=== PATIENT | female | born 2005 | race Caucasian/White ===

== ENCOUNTER 2024-09-19 22:10 | Emergency (ER) | payer OTHER, SELFPAY ==
[2024-09-19 22:21] VITALS: BP 111/90
[2024-09-19 22:44] LABS: % Basophils 0.4 % (0-2); % Eosinophils 0.8 % (0-6); % Immature Granulocytes 0.4 % (0-0.5); % Lymphocytes 27.4 % (20.5-51.1); % Monocytes 8.1 % (1.7-9.3); % Neutrophils 62.9 % (42.2-75.2); Absolute Eosinophils 0.1 10^3/uL (0-0.7); Absolute Lymphocytes 2.7 10^3/uL (1.2-3.4); Absolute Monocytes 0.8 10^3/uL (0.1-0.6); Absolute Neutrophils 6.2 10^3/uL (1.4-6.5); Hematocrit 37.5 % (37.0-47.0); Hemoglobin 13.6 g/dL (12.0-16.0); Mean Corp Hgb Conc. 36.3 g/dL (33.0-37.0); Mean Corpuscular Hgb 30.4 pg (27.0-31.0); Mean Corpuscular Volume 83.7 fL (81.0-99.0); Mean Platelet Volume 9.5 fL (7.4-10.4); Nucleated Red Blood Cells % 0 %; Platelet Count 392 10^3/uL (130-400); Red Blood Cell Count 4.48 10^6/uL (4.20-5.40); Red Cell Dist. Width 11.3 % (11.5-14.5); White Blood Cell Count 9.9 10^3/uL (4.8-10.8)
[2024-09-19 23:15] LABS: ALT (SGPT) 13 U/L (0-35); AST (SGOT) 24 U/L (14-36); Alkaline Phosphatase 54 U/L (38-126); Blood Urea Nitrogen 12 mg/dl (7-17); Calcium 9.6 mg/dl (8.4-10.2); Carbon Dioxide 23 mmol/L (22-30); Chloride 99 mmol/L (98-107); Glucose 97 mg/dl (70-99); Potassium 3.3 mmol/L (3.5-5.1); Sodium 137 mmol/L (135-145); Total Bilirubin 0.8 mg/dl (0.2-1.3); Total Protein 7.7 g/dl (6.3-8.2); eGFR > 60.00
[2024-09-20 01:14] VITALS: BP 113/64
[2024-09-20 02:00] VITALS: BP 115/74
[2024-09-20 03:39] VITALS: BP 111/66; BP 113/77; BP 122/78; PULSE 74; PULSE 79; PULSE 82
--- NOTE | 2024-09-20 03:39 | ED.GENMED ---
History of Present Illness
General
Chief Complaint: Chest Pain
Source: patient and family (Mother at bedside)
Exam Limitations: none
Time Seen by Provider: 09/20/24 02:56
Nursing documentation reviewed up to this point in time: agreed with except (Patient denies chest pain.)
History of Present Illness
History of Present Illness:
This is a 18-year-old female who has no significant past medical history who recently completed a course of Augmentin 2 days ago for treatment of sinus infection. She does admit to moderate loose stools throughout the week as well as nausea without
vomiting.
Sinus infection symptoms have resolved, no further fever, no cough.
Today however she has noted intermittent palpitations feeling that her heart is racing, more so when she gets up and walks around accompanied with lightheadedness. Symptoms resolved when she sits down.
She denies associated chest pain, no shortness of breath, no headache.
Last menstrual period 2 weeks ago, normal and on time, denies risk of .
Since arrival to the ED she has been drinking water, Gatorade, feeling improved.
She has gotten up to the bathroom and does admit to mild lightheadedness upon standing but no further palpitations.
Past History
Past History
ED Past Medical History: None and Psychiatric (Anxiety)
ED Past Surgical History: None
Social History
Tobacco: Non-smoker
Alcohol: None
Drug: None
Personal: Single
Living: with family
Employment: Student
Family History
Family History: Other (Noncontributory)
Phy Exam
Physical Exam
Physical Exam:
GENERAL: 18-year-old female appears her stated age, awake and alert, pleasant, appears in no acute distress. Mother is accompanying.
EYE: pupils equal and reactive. anicteric
NECK: Supple, nontender, no meningismus, no significant adenopathy.
ENT: posterior pharynx is clear, oral mucosa is moist. TM clear b/l, nares patent.
CARDIAC: Regular rate and rhythm. no murmur.
LUNGS: Clear breath sounds bilaterally, no acute respiratory distress, no wheezes/rales/rhonchi
ABDOMEN: Soft, nondistended, without focal tenderness, no r/g, no cvat. normoactive BS.
NEUROLOGICAL: Alert and oriented x3, no focal neuro deficits.
SKIN: Warm and dry, normal color, skin intact. No rash.
MUSCULOSKELETAL: No C/C/E. peripheral pulses are full and equal b/l. No palpable tenderness.
PSYCH: Normal and appropriate interaction.
Scores
Heart Score for Chest Pain Patients
STEMI patient?: Not applicable
Course
Orders/Labs/Results
Orders:
Orders
09/19/24 22:11
EKG [Electrocardiogram (*1)] Urgent
Reason for Study: Palpitations
EKG- Treatment ONCE
09/19/24 22:34
CBC/With Diff [Complete Blood Count/With Diff] Urgent
Comprehensive Metabolic Panel Urgent
09/20/24 03:39
Orthostatic VS- Treatment ONCE
Potassium Chloride [KCl] 20 meq PO NOW STA
Abnormal Lab Results
09/19/24
22:34
RDW 11.3 L %
(11.5-14.5)
Absolute Monos (auto) 0.8 H 10^3/uL
(0.1-0.6)
Potassium 3.3 L mmol/L
(3.5-5.1)
09/19/24 22:34
09/19/24 22:34
Vital Signs
Initial and Last Documented VS:
Initial Vital Signs
Temp Pulse Resp BP Pulse Ox
98.7 F 87 16 111/90 100
09/19/24 22:21 09/19/24 22:21 09/19/24 22:21 09/19/24 22:21 09/19/24 22:21
Last Documented Vital Signs
Temp Pulse Resp BP Pulse Ox
98.7 F 68 15 115/74 100
09/19/24 22:21 09/20/24 03:00 09/20/24 03:00 09/20/24 02:00 09/20/24 02:45
MDM/Problems Addressed
Differential Diagnosis Includes:
Concern for tachyarrhythmia, orthostasis, electrolyte abnormality, dehydration.
Clinically appears euvolemic.
She has had some loose stools over the past week which I suspect is related to Augmentin. Overall diarrhea has been moving and nothing on exam nor labs to suspect C. difficile colitis nor other infectious colitis.
Monitor shows normal sinus rhythm without ectopy.
EKG is unremarkable.
Labs remarkable for mild hypokalemia with potassium of 3.3. Normal CBC. Electrolytes are otherwise within normal limits.
Will repeat potassium orally.
Will check orthostatic vital signs.
If orthostatic vital signs within normal limits will discharge to home with recommendation she stay well-hydrated over the next several days, recommend potassium rich foods, continue electrolyte replacement fluids such as Gatorade etc
Brat diet recommended for diarrhea.
Prompt follow-up with PCP for recheck.
Return precautions discussed.
*Pulse Oximetry
Patient hypoxic: no
*EKG
Interpreted by ED Provider?: Yes
Interpretation: normal
Comparison EKG: no comparison EKG present
Rate: normal
Rhythm: sinus
Frost: normal axis
Interval: normal interval
QRS Pattern: normal QRS
Ischemia: no ischemia
*Humanities Department Chair Interpretation
Rate: normal
Interpretation: normal
Rhythm: sinus
*Critical Care Note
Total Time (30-74mins, 75-104mins- exclusive of procedures): Not Applicable
ED Attending Note
-
Portions of this chart may have been created with voice recognition software.� Occasional wrong word or��sound alike� substitutions may have occurred due to the inherent limitations of voice recognition software.
Discharge Plan
Departure
Patient Disposition: Home (Routine Discharge)
Date of Disposition: 09/20/24
Time of Disposition: 03:49
Patient with high blood pressure during this ER visit?: No
Condition: Good
Discharge Problem:
Heart palpitations, Acute hypokalemia, Diarrhea due to drug
Instructions: Acute Diarrhea, Heart Palpitations
Prescriptions:
No Action
amoxicillin 400 MG/5 ML suspension for reconstitution
400 mg PO TID Qty: 120 0RF
carbamazepine [Epitol] 200 mg tablet
100 mg PO TID Qty: 45 0RF
Rx Instructions:
May increase to 200mg PO tid after one week
Referrals:
Tabitha Jeong PA [Family Provider] - Call in 1-3 days for appt
Interventions
Interventions:
*Risk Screen - Suicide Last Done: 09/19/24 22:21
*General Assessment Last Done: 09/19/24 22:21
*Neglect/Abuse Screening Last Done: 09/19/24 22:21
ED- Fall Risk Assessment Last Done: 09/20/24 02:18
*ED COVID-19 Vaccine History Last Done: 09/19/24 22:21
*Nursing Disposition Last Done: 09/20/24 03:53
ED- Cardiac Assessment Last Done: 09/20/24 02:18
Discharge Date and Time
Discharge Date/Time: 09/20/24 03:56
Print Language: PARAGUAYAN
[2024-09-20] MEDS: KCL 20 MEQ PO (03:42)
== END 2024-09-20 03:56 | disposition home or self-care (01) ==
LOC: EMR 22:10
PROVIDERS: EMERGENCY PHYSICIAN Emergency Medicine; FAMILY PHYSICIAN Physician Assistant
DX: E87.6 Hypokalemia (principal); R00.2 Palpitations; R19.7 Diarrhea, unspecified
CPT/HCPCS: 99284; 80053; 85025; 93005

== ENCOUNTER 2024-12-14 10:01 | Emergency (ER) | payer OTHER, SELFPAY ==
[2024-12-14 10:05] VITALS: BP 113/80
[2024-12-14 12:00] VITALS: BP 111/69; BMI 24.9
[2024-12-14 12:25] VITALS: BP 103/84; BP 110/70; BP 111/69; PULSE 102; PULSE 84; PULSE 93
[2024-12-14 12:30] LABS: % Basophils 0.5 % (0-2); % Eosinophils 0.6 % (0-6); % Immature Granulocytes 0.4 % (0-0.5); % Lymphocytes 24.1 % (20.5-51.1); % Monocytes 7.6 % (1.7-9.3); % Neutrophils 66.8 % (42.2-75.2); Absolute Eosinophils 0.1 10^3/uL (0-0.7); Absolute Lymphocytes 1.9 10^3/uL (1.2-3.4); Absolute Monocytes 0.6 10^3/uL (0.1-0.6); Absolute Neutrophils 5.2 10^3/uL (1.4-6.5); Hematocrit 41.7 % (37.0-47.0); Hemoglobin 14.8 g/dL (12.0-16.0); Mean Corp Hgb Conc. 35.5 g/dL (33.0-37.0); Mean Corpuscular Hgb 30.7 pg (27.0-31.0); Mean Corpuscular Volume 86.5 fL (81.0-99.0); Mean Platelet Volume 9.2 fL (7.4-10.4); Nucleated Red Blood Cells % 0 %; Platelet Count 323 10^3/uL (130-400); Red Blood Cell Count 4.82 10^6/uL (4.20-5.40); Red Cell Dist. Width 11.8 % (11.5-14.5); White Blood Cell Count 7.7 10^3/uL (4.8-10.8)
[2024-12-14 12:47] LABS: ALT (SGPT) 13 U/L (0-35); AST (SGOT) 19 U/L (14-36); Albumin 5.4 g/dl (3.5-5.0); Alkaline Phosphatase 54 U/L (38-126); Blood Urea Nitrogen 11 mg/dl (7-17); Calcium 10.3 mg/dl (8.4-10.2); Carbon Dioxide 23 mmol/L (22-30); Chloride 105 mmol/L (98-107); Estimated Creatinine Clearance > 125 ml/min; Glucose 96 mg/dl (70-99); Potassium 4.4 mmol/L (3.5-5.1); Sodium 141 mmol/L (135-145); Total Bilirubin 1.2 mg/dl (0.2-1.3); Total Protein 8.4 g/dl (6.3-8.2); eGFR > 60.00
[2024-12-14] MEDS: NSS 1000 IV (12:59)
[2024-12-14 13:50] VITALS: BP 100/54; BP 106/74; BP 111/75; PULSE 65; PULSE 77; PULSE 78
--- NOTE | 2024-12-14 13:52 | ED.GENMED ---
History of Present Illness
General
Chief Complaint: Chest Pain
Time Seen by Provider: 12/14/24 11:15
History of Present Illness
History of Present Illness:
19-year-old female presents the emergency department for evaluation of positional lightheadedness and intermittent chest pain beginning yesterday. Began while at work yesterday, with standing for prolonged period of time. Feels somewhat better
when she is seated. Intermittent sharp pains in her chest. Feels though she cannot take a deep breath. No calf pain or leg swelling. Does not take any exogenous hormones. No recent prolonged travel or immobilization. No recent fevers or chills.
Past History
Past History
ED Past Medical History: None and Psychiatric (Anxiety)
ED Past Surgical History: None
Social History
Tobacco: Non-smoker
Alcohol: None
Drug: None
Personal: Single
Living: with family
Employment: Student
Family History
Family History: Other (Noncontributory)
Review of Systems
Review of Systems
Allergies reviewed?: Yes
All Other Systems: ROS reviewed and negative except as documented in HPI and ROS
Phy Exam
Physical Exam
Physical Exam:
GEN: Well appearing, NAD, WDWN
HEENT: Oral mucosa moist, no scleral icterus
Cardiac: Regular rate and rhythm, no murmurs
Lung: No respiratory distress, no tachypnea, lungs clear to auscultation bilaterally
MSK: No gross deformity or injuries
Skin: Good color, no pallor or jaundice, no rashes
Neuro: AO x3, moves all extremities freely
Psych: Calm, cooperative
Scores
Heart Score for Chest Pain Patients
STEMI patient?: Not applicable
Course
Orders/Labs/Results
Orders:
Orders
12/14/24 10:02
EKG [Electrocardiogram (*1)] Urgent
Reason for Study: Chest Pain
EKG- Treatment ONCE
12/14/24 12:07
Orthostatic VS- Treatment ONCE
12/14/24 12:23
Complete Blood Count/With Diff Urgent
Comprehensive Metabolic Panel Urgent
12/14/24 12:48
0.9% Sodium Chloride 1000 ml [Nss] 1,000 ml IV BOLUS
Abnormal Lab Results
12/14/24
12:23
Calcium 10.3 H mg/dl
(8.4-10.2)
Total Protein 8.4 H g/dl
(6.3-8.2)
Albumin 5.4 H g/dl
(3.5-5.0)
12/14/24 12:23
12/14/24 12:23
Vital Signs
Initial and Last Documented VS:
Initial Vital Signs
Temp Pulse Resp BP Pulse Ox
98.7 F 84 20 113/80 98
12/14/24 10:05 12/14/24 10:05 12/14/24 10:05 12/14/24 10:05 12/14/24 10:05
Last Documented Vital Signs
Temp Pulse Resp BP Pulse Ox
98.7 F 64 12 111/69 100
12/14/24 10:05 12/14/24 12:00 12/14/24 12:00 12/14/24 12:00 12/14/24 12:00
MDM/Problems Addressed
MDM/Problems Addressed:
EKG is unremarkable, vital signs normal. Patient did not complain of any further chest pain while in the emergency department. Her labs are reassuring, EKG was without signs of ischemia or arrhythmia on telemetry. She meets PE rule out criteria.
Was mildly orthostatic however this improved after IV fluids. Recommend primary care follow-up if symptoms persist
*Critical Care Note
Total Time (30-74mins, 75-104mins- exclusive of procedures): Not Applicable
ED Attending Note
-
Portions of this chart may have been created with voice recognition software.� Occasional wrong word or��sound alike� substitutions may have occurred due to the inherent limitations of voice recognition software.
Discharge Plan
Departure
Patient Disposition: Home (Routine Discharge)
Date of Disposition: 12/14/24
Time of Disposition: 13:52
Patient with high blood pressure during this ER visit?: No
Discharge Problem:
Orthostatic lightheadedness
Instructions: Orthostatic hypotension
Prescriptions:
No Action
amoxicillin 400 MG/5 ML suspension for reconstitution
400 mg PO TID Qty: 120 0RF
carbamazepine [Epitol] 200 mg tablet
100 mg PO TID Qty: 45 0RF
Rx Instructions:
May increase to 200mg PO tid after one week
Referrals:
Tabitha Jeong PA [Family Provider] -
Interventions
Interventions:
*Risk Screen - Suicide Last Done: 12/14/24 14:16
*General Assessment Last Done: 12/14/24 14:16
*Neglect/Abuse Screening Last Done: 12/14/24 14:16
*ED- Fall Risk Assessment Last Done: 12/14/24 12:26
*ED COVID-19 Vaccine History Last Done: 12/14/24 14:16
*Nursing Disposition Last Done: 12/14/24 14:16
ED- Cardiac Assessment Last Done: 12/14/24 12:00
Discharge Date and Time
Discharge Date/Time: 12/14/24 14:17
Print Language: SWEDISH
== END 2024-12-14 14:17 | disposition home or self-care (01) ==
LOC: EMR 10:01
PROVIDERS: Physician Assistant; EMERGENCY PHYSICIAN Student in an Organized Health Care Education/Training Program; FAMILY PHYSICIAN Physician Assistant
DX: R42 Dizziness and giddiness (principal); R07.89 Other chest pain
CPT/HCPCS: 99284; 96360; 80053; 85025; 93005

== ENCOUNTER → 2025-03-13 17:21 | Outpatient (REF) | payer OTHER, SELFPAY | LOC: RCS 17:21 | PROVIDERS: ATTENDING PHYSICIAN Physician Assistant | DX: Q25.1 Coarctation of aorta (principal); R01.1 Cardiac murmur, unspecified | CPT/HCPCS: 93306 ==

== ENCOUNTER 2025-03-28 23:28 | Emergency (ER) | payer OTHER, SELFPAY ==
[2025-03-28 23:36] VITALS: BP 116/90
--- NOTE | 2025-03-29 00:17 | ED.GENMED ---
History of Present Illness
General
Chief Complaint: Fever
Time Seen by Provider: 03/29/25 00:15
History of Present Illness
History of Present Illness:
PAST MEDICAL HISTORY AND REVIEW OF OLD RECORDS
- The patient has a history of anxiety/depression. She has had a couple of ED visits earlier this year, once for hypokalemia and another for orthostatic lightheadedness.
Note:
CHIEF COMPLAINT(S)
The patient, a 19-year-old female, presents with fever, headache, and swollen glands.
HISTORY OF PRESENT ILLNESS
The patient describes experiencing an elevated temperature and significant pain and swelling in her glands, similar to a past episode of mononucleosis. She reports a severe headache that she attempted to alleviate by taking three tablets of
[id number] Ibuprofen at 8 am; however, pain relief was only temporary, lasting around two hours. The patient denies any nausea and does not want anti-nausea medication. She experiences discomfort during movement of her neck but does not report
stiffness typically associated with meningitis. Respirations feel somewhat tight, although she denies anxiety as a contributing factor. The patient mentions urinary burning, possibly related to insufficient hydration. She does not have any ongoing
dysuria. Additionally, shes had some menstrual irregularities with heavier than normal flow and clots but does not believe this is connected to her current symptoms. There is no history of tick exposure or tick-borne illnesses. Given her symptoms
and her dislike for needles, the decision was made to proceed with blood work to evaluate for various potential causes, including checking Thyroid-Stimulating Hormone with reflex to free T4 as requested by her doctor.
PHYSICAL EXAM
General: Alert, in no acute distress.
Skin: Warm, dry.
Head: Normocephalic, atraumatic.
Neck: Supple, no pain on motion. Mild anterior cervical lymphadenopathy. No meningeal signs
Eye, Ears, Nose, Mouth, and Throat: Oral mucosa moist, no redness or swelling in the throat noted.
Respiratory: Respiratory effort is normal. Lung sounds are clear without wheezes or rhonchi.
Musculoskeletal: No meningismus.
Neurological: Alert and oriented. No focal neurological deficit observed.
Gastrointestinal: Abdomen nondistended and soft, no tenderness.
Back: No tenderness over spine.
Psychiatric: Appropriate mood and affect, cooperative.
PLAN
1. Order blood work to check for possible infection and thyroid function (TSH with reflex to free T4).
2. Administer antipyretic (Tylenol) orally to address fever.
3. Obtain a urine sample to assess for possible urinary infection.
4. Conduct a chest X-ray to evaluate further potential causes of symptoms.
5. Nurse to perform venipuncture for laboratory tests due to patient aversion to needles.
6. Monitor symptoms and evaluate for potential viral versus bacterial causes, particularly considering the spectrum of conditions from meningitis to viral illnesses.
7. Reassure the patient and continue monitoring vital signs for any changes.
DIFFERENTIAL DIAGNOSIS
The Differential Diagnosis includes, in no particular order and is not limited to:
1. Viral Upper Respiratory Infection
2. Mononucleosis
3. Viral or Bacterial Meningitis
4. Urinary Tract Infection
5. Streptococcal Pharyngitis
6. Sinusitis
7. Thyroid Disorder
8. Influenza
9. Allergic Reaction
10. Anxiety Disorder
RADIOLOGY
- Chest x-ray shows no definite sign of pneumonia
LABS
- White count is 3.8, hemoglobin 12.3, chemistries unremarkable, lactic is 1.2, mild transaminase elevation, TSH normal,
UPDATE
-SUMMARY OF ENCOUNTER
The patient, a 19-year-old female, presented with symptoms of fever, headache, swollen glands, and neck discomfort, reminiscent of a past episode of mononucleosis. Laboratory tests confirmed a positive Monospot test indicating infectious
mononucleosis. Blood work showed slightly elevated liver enzymes and a low white blood cell count, common in viral infections like mononucleosis. A chest X-ray was performed and interpreted to be normal. Treatment options were discussed, including
the administration of ketorolac (Toradol) via IV to manage the inflammation and pain. The patient was counseled about the self-limiting nature of the illness and instructed to avoid contact sports due to potential splenic involvement. A note was
provided to excuse the patient from work for a few days due to potential recurrence of fever.
DISPOSITION
Discharge.
ASSESSMENT
The patient likely has infectious mononucleosis with mildly elevated liver enzymes and a low white blood cell count, consistent with a viral syndrome.
EMERGENCY TREATMENTS ADMINISTERED
Ketorolac (Toradol) administered via IV.
IV fluids
Oral
PLAN
1. The patient is advised to rest and avoid contact sports or strenuous activities for at least one month.
2. Provide symptomatic treatment with anti-inflammatory medications as needed.
3. Monitor symptoms at home and return if they worsen or if new symptoms arise.
4. Patient advised on ways to prevent spreading the infection, such as avoiding kissing or sharing utensils.
INDEPENDENT REVIEW OF LABS AND INTERPRETATION OF TESTS
- My independent review of the Monospot test is positive.
- My independent review of the complete blood count indicates a low white blood cell count.
- My independent review of the liver function tests shows mildly elevated liver enzymes.
- My independent chest x-ray interpretation is normal.
PATIENT EDUCATION AND COUNSELING
The patient was educated about the transmission and nature of mononucleosis, including its contagious nature through saliva. She was advised to avoid activities that might impact the spleen for a month and was counseled on the importance of rest and
hydration.
FOLLOW-UP INSTRUCTIONS
The patient should follow up with her primary care physician if symptoms do not improve or worsen. She was provided a work excuse note valid until Tuesday and instructed to only return to work if feeling better.
MEDICATION RECONCILIATION
- Ketorolac given as an IV injection in the emergency department.
MEDICAL DECISION MAKING
1. Number and Complexity of Problems Addressed:
- Chronic conditions affecting care: Infectious mononucleosis.
- Differential Diagnosis considered: Viral Upper Respiratory Infection, Mononucleosis, Viral or Bacterial Meningitis, Urinary Tract Infection, Streptococcal Pharyngitis, Sinusitis, Thyroid Disorder, Influenza, Allergic Reaction, Anxiety Disorder.
2. Data:
- Category 1: Tests ordered and reviewed include Monospot test, liver function tests, and CBC. Chest x-ray independently interpreted as normal.
3. Risk:
- Prescription medication was prescribed: Ketorolac for inflammation and pain relief.
- Consideration of Admission/Observation: Escalation of care including admission/observation was considered given the complexity and risk of the patients presenting complaint, exam findings, and/or their underlying comorbidities. However, ultimately
I feel the patient is safe for outpatient management with close follow-up. Reasoning: Work-up reassuring, does not reveal any acute life/organ-threatening processes, patients symptoms well controlled upon reevaluation, reexamination is reassuring,
vitals are stable, patient agreeable with discharge, reliable for follow-up.
DIAGNOSIS
- Infectious mononucleosis (ICD-10: B27.90).
- Elevated liver enzymes due to mononucleosis (ICD-10: R94.5).
Past History
Past History
ED Past Medical History: None and Psychiatric (Anxiety)
ED Past Surgical History: None
Social History
Tobacco: Non-smoker
Alcohol: None
Drug: None
Personal: Single
Living: with family
Employment: Student
Family History
Family History: Other (Noncontributory)
Phy Exam
Physical Exam
Physical Exam:
See HPI
Sepsis
Sepsis Screening
Sepsis Assessment: Sepsis Ruled Out
Sepsis Screen
Sepsis Screen: Sepsis Ruled Out
Date: 03/29/25
Time: 02:22
Course
Orders/Labs/Results
Orders:
Orders
03/29/25 00:15
0.9% Sodium Chloride 1000 ml [Nss] 1,000 ml IV BOLUS
Ondansetron Injectable [Zofran] 4 mg IV NOW STA
03/29/25 00:16
CR Chest - 2 Views Urgent
Comment:
Reason For Exam: sob fever
03/29/25 00:17
Test Result ONCE
03/29/25 00:27
Urinalysis Reflex To Culture Urgent
Date Specimen was Collected: 03/29/25
Time Specimen was Collected: 00:27
03/29/25 00:33
Acetaminophen [Tylenol] 1,000 mg PO NOW STA
03/29/25 00:51
Comprehensive Metabolic Panel Urgent
HCG, Serum Qualitative Screen Urgent
Lactic Acid Q4H
Comment: CANCEL 2nd LACTIC ACID IF 1st LACTIC ACID IS LESS THAN 2
Monotest Urgent
TSH Reflex To Free T4 Urgent
Blood Culture Q30M
OBDULIA Source: Blood/Venous
Specimen Description:
03/29/25 00:53
CBC/With Diff [Complete Blood Count/With Diff] Urgent
03/29/25 00:57
COVID-19 Antigen Urgent
Source: Nasal Swab
Influenza A+B Rapid Molecular Urgent
OBDULIA Source: Nasal Swab
Specimen Description:
03/29/25 01:00
Blood Culture Q30M
OBDULIA Source: Blood/Venous
Specimen Description:
03/29/25 02:07
Ketorolac [Toradol] 15 mg IV NOW STA
Abnormal Lab Results
03/29/25 03/29/25
00:51 00:53
WBC 3.8 L 10^3/uL
(4.8-10.8)
RBC 4.13 L 10^6/uL
(4.20-5.40)
Hct 35.6 L %
(37.0-47.0)
Plt Count 102 L 10^3/uL
(130-400)
BUN 5 L mg/dl
(7-17)
Glucose 112 H mg/dl
(70-99)
AST 111 H U/L
(14-36)
ALT 100 H U/L
(0-35)
Monoscreen Positive A
(Negative)
03/29/25 00:53
03/29/25 00:51
Vital Signs
Initial and Last Documented VS:
Initial Vital Signs
Temp Pulse Resp BP Pulse Ox
38.3 C H 103 20 116/90 97
03/28/25 23:36 03/28/25 23:36 03/28/25 23:36 03/28/25 23:36 03/28/25 23:36
Last Documented Vital Signs
Temp Pulse Resp BP Pulse Ox
37.9 C 91 18 122/76 99
03/29/25 00:36 03/29/25 00:36 03/29/25 00:36 03/29/25 00:36 03/29/25 00:36
*Pulse Oximetry
SaO2: 97
Oxygen Mode of Delivery: Room air
Patient hypoxic: no
*Critical Care Note
Total Time (30-74mins, 75-104mins- exclusive of procedures): Not Applicable
ED Attending Note
-
Portions of this chart may have been created with voice recognition software.� Occasional wrong word or��sound alike� substitutions may have occurred due to the inherent limitations of voice recognition software.
Discharge Plan
Departure
Patient Disposition: Home (Routine Discharge)
Date of Disposition: 03/29/25
Time of Disposition: 02:19
Patient with high blood pressure during this ER visit?: Yes
Discharge Problem:
Mononucleosis
Instructions: Mononucleosis
Prescriptions:
No Action
amoxicillin 400 MG/5 ML suspension for reconstitution
400 mg PO TID Qty: 120 0RF
carbamazepine [Epitol] 200 mg tablet
100 mg PO TID Qty: 45 0RF
Rx Instructions:
May increase to 200mg PO tid after one week
Referrals:
Tabitha Jeong PA [Family Provider, Family Practice]
Activity Restrictions/Additional Instructions:
Continue Tylenol and/or Motrin for headaches, fevers, and achiness. Your monotest is positive and your transaminase liver numbers are high�this is commonly seen with mono. Your TSH (thyroid screening test) was normal. Return here if worse or
other concerns.
Interventions
Interventions:
*Risk Screen - Suicide Last Done: 03/28/25 23:36
*General Assessment Last Done: 03/29/25 00:36
*Neglect/Abuse Screening Last Done: 03/28/25 23:36
*ED- Fall Risk Assessment Last Done: 03/28/25 23:36
*ED COVID-19 Vaccine History Last Done: 03/29/25 00:36
ED- Neurological Assessment Last Done: 03/29/25 01:00
ED-Skin Assessment Last Done: 03/29/25 01:00
Discharge Date and Time
Print Language: [place]
[2025-03-29 00:35] VITALS: BMI 24.4
[2025-03-29 00:36] VITALS: BP 122/76
[2025-03-29] MEDS: NSS 1000 IV (01:01)
[2025-03-29] MEDS: TYLENOL 1000 MG PO (01:02)
[2025-03-29 01:06] LABS: Hematocrit 35.6 % (37.0-47.0); Hemoglobin 12.3 g/dL (12.0-16.0); Mean Corp Hgb Conc. 34.6 g/dL (33.0-37.0); Mean Corpuscular Volume 86.2 fL (81.0-99.0); Platelet Count 102 10^3/uL (130-400); Red Cell Dist. Width 11.6 % (11.5-14.5)
[2025-03-29 01:13] LABS: HCG, Serum Qualitative Screen Negative
[2025-03-29 01:18] LABS: ALT (SGPT) 100 U/L (0-35); AST (SGOT) 111 U/L (14-36); Albumin 4.4 g/dl (3.5-5.0); Alkaline Phosphatase 73 U/L (38-126); Blood Urea Nitrogen 5 mg/dl (7-17); Calcium 9.7 mg/dl (8.4-10.2); Carbon Dioxide 25 mmol/L (22-30); Chloride 105 mmol/L (98-107); Estimated Creatinine Clearance 115 ml/min; Glucose 112 mg/dl (70-99); Potassium 4.0 mmol/L (3.5-5.1); Sodium 137 mmol/L (135-145); Total Protein 7.2 g/dl (6.3-8.2); eGFR > 60.00
[2025-03-29 01:31] LABS: COVID-19 Antigen Negative (Negative)
[2025-03-29 02:00] VITALS: BP 105/76
[2025-03-29] MEDS: TORADOL 15 MG IV (02:34)
[2025-03-29 02:50] LABS: Urine Character Cloudy (Clear)
[2025-03-29 02:53] LABS: Absolute Neutrophils -Man Diff 1.9 10^3/uL (1.4-6.5); Platelets Checked Yes
[2025-03-29 02:54] LABS: Anisocytosis 1+; Normal RBC Morphology No; Total Cells Counted 100
[2025-03-29 03:07] LABS: Urine Squamous Cell >30 /LPF (Few)
[2025-03-29 03:09] LABS: Urine Red Blood Cell 0-2 /HPF (0-2)
== END 2025-03-29 02:59 | disposition home or self-care (01) ==
LOC: EMR 23:28
PROVIDERS: EMERGENCY PHYSICIAN Emergency Medicine; FAMILY PHYSICIAN Physician Assistant
DX: B27.90 Infectious mononucleosis, unspecified without complication (principal); R51.9 Headache, unspecified; R30.0 Dysuria; R59.0 Localized enlarged lymph nodes; Z11.52 Encounter for screening for COVID-19; R94.5 Abnormal results of liver function studies; R03.0 Elevated blood-pressure reading, without diagnosis of hypertension; F41.9 Anxiety disorder, unspecified; F32.A Depression, unspecified; Z91.048 Other nonmedicinal substance allergy status
CPT/HCPCS: 99284; 96374; 96375; 96361; 71046; 80053; 81003; 81015; 83605; 84443; 84703; 85025; 86308; 87040; 87502; 87811

== ENCOUNTER 2025-05-16 19:03 | Emergency (ER) | payer OTHER, SELFPAY ==
[2025-05-16 19:15] VITALS: BP 134/79
[2025-05-16 20:53] VITALS: BMI 24.3
[2025-05-16 21:01] VITALS: BP 122/83
[2025-05-16 21:49] LABS: Hematocrit 39.9 % (37.0-47.0); Hemoglobin 13.7 g/dL (12.0-16.0); Mean Corp Hgb Conc. 34.3 g/dL (33.0-37.0); Mean Corpuscular Volume 84.9 fL (81.0-99.0); Nucleated Red Blood Cells % 0 %; Platelet Count 288 10^3/uL (130-400); Red Cell Dist. Width 11.7 % (11.5-14.5)
[2025-05-16] MEDS: NSS 1000 IV (21:52)
[2025-05-16] MEDS: TORADOL 15 MG IV (21:53)
[2025-05-16] MEDS: DECADRON 10 MG IV (21:54)
[2025-05-16 21:58] LABS: COVID-19 Antigen Negative (Negative)
[2025-05-16 22:11] LABS: ALT (SGPT) 17 U/L (0-35); AST (SGOT) 21 U/L (14-36); Albumin 5.1 g/dl (3.5-5.0); Alkaline Phosphatase 50 U/L (38-126); Blood Urea Nitrogen 13 mg/dl (7-17); Calcium 10.0 mg/dl (8.4-10.2); Carbon Dioxide 25 mmol/L (22-30); Chloride 104 mmol/L (98-107); Estimated Creatinine Clearance 101 ml/min; Glucose 92 mg/dl (70-99); Potassium 3.7 mmol/L (3.5-5.1); Sodium 141 mmol/L (135-145); Total Protein 8.2 g/dl (6.3-8.2); eGFR > 60.00
[2025-05-16 23:00] VITALS: BP 117/87
[2025-05-17] VITALS: BP 110/67
--- NOTE | 2025-05-17 00:20 | ED.GENMED ---
History of Present Illness
General
Chief Complaint: Throat Problem
Source: patient
Exam Limitations: none
Time Seen by Provider: 05/16/25 21:25
History of Present Illness
History of Present Illness:
19-year-old female presents complaining of several days worth of fatigue abdominal discomfort and sore throat similar to what she presented with before when she had mono. She also notes a fever at times. No vomiting. No runny nose. No other
complaints
Past History
Past History
ED Past Medical History: None and Psychiatric (Anxiety)
ED Past Surgical History: None
Social History
Tobacco: Non-smoker
Alcohol: None
Drug: None
Personal: Single
Living: with family
Employment: Student
Family History
Family History: Other (Noncontributory)
Phy Exam
Physical Exam
Physical Exam:
General: Well-appearing female no acute respiratory distress
HEENT normal cephalic atraumatic no trismus or drooling no asymmetry in the posterior pharynx. Slight amount of irritation and cavitation of the right tonsil. Mild posterior adenopathy
Heart: Regular rate and rhythm
Lungs: Clear no wheeze
Abdomen is soft no organomegaly
Course
Orders/Labs/Results
Orders:
Orders
05/16/25 21:28
COVID-19 Antigen Urgent
Source: Nasal Swab
Complete Blood Count/With Diff Urgent
Comprehensive Metabolic Panel Urgent
Monotest Urgent
Influenza A+B Rapid Molecular Urgent
OBDULIA Source: Nasal Swab
Specimen Description:
05/16/25 21:40
0.9% Sodium Chloride 1000 ml [Nss] 1,000 ml IV BOLUS
Dexamethasone Sod Phosphate [Decadron] 10 mg IV NOW STA
Ketorolac [Toradol] 15 mg IV NOW STA
Abnormal Lab Results
05/16/25
21:28
Absolute Neuts (auto) 7.3 H 10^3/uL
(1.4-6.5)
Absolute Monos (auto) 0.7 H 10^3/uL
(0.1-0.6)
Albumin 5.1 H g/dl
(3.5-5.0)
Monoscreen Positive A
(Negative)
05/16/25 21:28
05/16/25 21:28
Vital Signs
Initial and Last Documented VS:
Initial Vital Signs
Temp Pulse Resp BP Pulse Ox
98 F 79 18 134/79 98
05/16/25 19:15 05/16/25 19:15 05/16/25 19:15 05/16/25 19:15 05/16/25 19:15
Last Documented Vital Signs
Temp Pulse Resp BP Pulse Ox
98.5 F 74 7 110/67 97
05/16/25 21:08 05/17/25 00:00 05/17/25 00:00 05/17/25 00:00 05/17/25 00:00
MDM/Problems Addressed
Differential Diagnosis Includes:
Patient with sore throat fatigue. Consider viral illness such as COVID flu mono. No evidence of peritonsillar abscess on exam. Will check labs hydrate and treat symptomatically with Toradol and Decadron
*Pulse Oximetry
SaO2: 97
Oxygen Mode of Delivery: Room air
Patient hypoxic: no
*Critical Care Note
Total Time (30-74mins, 75-104mins- exclusive of procedures): Not Applicable
Update Note
Update Note:
Patient tested positive for mono. Nontoxic upon reassessment no evidence of peritonsillar abscess on exam. Recommended supportive care at home stable for discharge
ED Attending Note
-
Portions of this chart may have been created with voice recognition software.� Occasional wrong word or��sound alike� substitutions may have occurred due to the inherent limitations of voice recognition software.
Discharge Plan
Departure
Patient Disposition: Home (Routine Discharge)
Date of Disposition: 05/17/25
Time of Disposition: 00:23
Patient with high blood pressure during this ER visit?: No
Discharge Problem:
Mononucleosis
Instructions: Mononucleosis (DC)
Prescriptions:
No Action
amoxicillin 400 MG/5 ML suspension for reconstitution
400 mg PO TID Qty: 120 0RF
carbamazepine [Epitol] 200 mg tablet
100 mg PO TID Qty: 45 0RF
Rx Instructions:
May increase to 200mg PO tid after one week
Referrals:
Tabitha Jeong PA [Family Provider, Family Practice]
Stand Alone Forms: Return to Work
Activity Restrictions/Additional Instructions:
Rest. Stay hydrated. Use Tylenol or ibuprofen if needed. Return if needed otherwise follow-up with your doctor
Interventions
Interventions:
*Risk Screen - Suicide Last Done: 05/16/25 19:15
*General Assessment Last Done: 05/16/25 20:53
*Neglect/Abuse Screening Last Done: 05/16/25 20:53
*ED- Fall Risk Assessment Last Done: 05/16/25 20:53
*ED COVID-19 Vaccine History Last Done: 05/16/25 20:53
ED-EENT Assessment Last Done: 05/16/25 20:53
ED- Pulmonary Assessment Last Done: 05/16/25 20:53
Discharge Date and Time
Print Language: PERSIAN
== END 2025-05-17 00:37 | disposition home or self-care (01) ==
LOC: EMR 19:03
PROVIDERS: EMERGENCY PHYSICIAN Emergency Medicine; FAMILY PHYSICIAN Physician Assistant
DX: B27.90 Infectious mononucleosis, unspecified without complication (principal)
CPT/HCPCS: 99284; 96374; 96375; 96361; 80053; 85025; 86308; 87502; 87811

== ENCOUNTER 2025-05-18 15:48 | Emergency (ER) | payer OTHER, SELFPAY ==
[2025-05-18] VITALS (7 sets, daily range): BP systolic 110–127; BP diastolic 70–81; BMI 24.1
--- NOTE | 2025-05-18 18:04 | ED.GENMED ---
History of Present Illness
General
Chief Complaint: Fainting Sensation
Source: patient
Time Seen by Provider: 05/18/25 17:48
History of Present Illness
History of Present Illness:
This patient is a 19-year-old female who was just diagnosed with mono 2 days ago. She states that yesterday she felt 'okay'. Then, today, she noted around 4:30 PM that she started to feel some discomfort in her chest described as like a bruise or
'sore'. She denies leg swelling, recent immobilization, recent trauma, smoking history, estrogen use. The pain is not pleuritic in nature and does not radiate elsewhere such as her back neck jaw etc. She denies associated diaphoresis, dyspnea,
cough. She did have rhinorrhea like 2 days ago. She also notes that she has had mild loss of appetite and intermittent nausea for which she usually takes Zofran but ran out of her prescription. Patient also notes abdominal cramping described as
'pressure' diffusely but more so on the left side. She is also having episodes where she feels a little shaky and lightheaded. She suspects most of her symptoms are related to anxiety.
Past History
Past History
ED Past Medical History: Psychiatric (Anxiety)
ED Past Surgical History: Other (Skin lesion removal)
Social History
Tobacco: Non-smoker
Alcohol: None
Drug: None
Personal: Single
Living: with roommate
Employment: Student
Family History
Family History: Other (Noncontributory)
Phy Exam
Physical Exam
Physical Exam:
GENERAL: Alert , in no apparent distress
EYE: pupils equal and reactive
NECK: Supple, no significant adenopathy.
ENT: o/p clr, mmm, no trismus, no drool, voice clear.
CARDIAC: Regular rate and rhythm .
LUNGS: Clear breath sounds bilaterally, no acute respiratory distress, no wheezes/rales/rhonchi
ABDOMEN: Soft, without focal tenderness, no r/g, no cvat
NEUROLOGICAL: Alert and oriented, no focal neuro deficits
SKIN: Warm and dry, skin intact.
MUSCULOSKELETAL: No edema, well perfused.
PSYCH: Normal and appropriate interaction.
Course
Orders/Labs/Results
Orders:
Orders
05/18/25 15:53
EKG [Electrocardiogram (*1)] Urgent
Reason for Study: Tachycardia
EKG- Treatment ONCE
05/18/25 18:01
Test Result ONCE
US Abdomen Complete/Upper Urgent
Comment:
Reason For Exam: dx mono, now abd pain
05/18/25 19:39
HCG, Urine Qualitative Screen Urgent
Date Specimen was Collected: 05/18/25
Time Specimen was Collected: 18:03
05/18/25 15:53
05/18/25 15:53
Vital Signs
Initial and Last Documented VS:
Initial Vital Signs
Temp Pulse Resp BP Pulse Ox
98.1 F 64 16 127/81 99
05/18/25 15:49 05/18/25 15:49 05/18/25 15:49 05/18/25 15:49 05/18/25 15:49
Last Documented Vital Signs
Temp Pulse Resp BP Pulse Ox
98.1 F 62 11 119/78 99
05/18/25 15:49 05/18/25 20:00 05/18/25 20:00 05/18/25 20:00 05/18/25 20:00
*Pulse Oximetry
SaO2: 100
Oxygen Mode of Delivery: Room air
Patient hypoxic: no
*Critical Care Note
Total Time (30-74mins, 75-104mins- exclusive of procedures): Not Applicable
Update Note
Update Note:
Patient presents to the Emergency Department with
Number and Complexity of Problems Addressed at the Encounter
� Chronic conditions affecting care:
� Acute Exacerbation and/or Progression of Chronic Illness:
� Differential Diagnosis includes:
Amount and/or Complexity of Data to be Reviewed and Analyzed
� I performed an independent evaluation of and my interpretation is:
EKG: Read by me, normal sinus rhythm, PVC noted, no acute ischemia
CT:
Xrays:
Laboratory Studies:hcg neg
Other:US mild splenomegaly
� Review of other/old records reveals:
� Clinical information was obtained by an independent historian:
� Prescriptions/Medications Considered but not given:
� Further testing considered but not performed:
Risk of Complications and/or Morbidity or Mortality of Patient Management
� Social determinants of health affecting care:
� Discussion with other providers (PCP, Hospitalists, Consultants, etc):
� Escalation of care including admission/observation vs risk of discharge considered: Patient declines laboratory evaluation here which I think is reasonable given she had unremarkable labs just 2 days ago. Vital signs are
stable. Will assess abdominal discomfort with an ultrasound of her abdomen, rule out splenomegaly for example. Will rule out with hCG here.
Pt advised re:mild splenomegaly, need for f/u concerning, avoid contact sports, etc. Pt feels well, vss, would like to go home.
ED Attending Note
-
Portions of this chart may have been created with voice recognition software.� Occasional wrong word or��sound alike� substitutions may have occurred due to the inherent limitations of voice recognition software.
Discharge Plan
Departure
Patient Disposition: Home (Routine Discharge)
Date of Disposition: 05/18/25
Time of Disposition: 20:51
Patient with high blood pressure during this ER visit?: Yes
Condition: Good
Discharge Problem:
Chest pain
Instructions: Abdominal pain in adults (DC), BLOOD PRESSURE, Chest Pain
Prescriptions:
No Action
amoxicillin 400 MG/5 ML suspension for reconstitution
400 mg PO TID Qty: 120 0RF
carbamazepine [Epitol] 200 mg tablet
100 mg PO TID Qty: 45 0RF
Rx Instructions:
May increase to 200mg PO tid after one week
Referrals:
Tabitha Jeong PA [Family Provider, [facility]] - Next open appointment
Activity Restrictions/Additional Instructions:
YOUR SPLEEN WAS NOTED TO BE SLIGHTLY ENLARGED TODAY ON ULTRASOUND. PLEASE HAVE THIS FURTHER EVALUATED WITH YOUR NEXT DOCTOR APPOINTMENT SOON. IF YOU DEVELOP BLEEDING, FEVER, REPEATED VOMITING, TROUBLE BREATHING, NEW OR PERSISTENT CHEST PAIN, OR
OTHER WORRISOME SIGNS, PLEASE RETURN TO THE ER IMMEDIATELY!
Interventions
Interventions:
*Risk Screen - Suicide Last Done: 05/18/25 15:49
*General Assessment Last Done: 05/18/25 15:49
*Neglect/Abuse Screening Last Done: 05/18/25 15:49
*ED- Fall Risk Assessment Last Done: 05/18/25 15:49
*ED COVID-19 Vaccine History Last Done: 05/18/25 15:49
ED- Cardiac Assessment Last Done: 05/18/25 16:52
ED- Neurological Assessment Last Done: 05/18/25 16:52
Discharge Date and Time
Print Language: MALAY
[2025-05-18 19:50] LABS: HCG, Urine Qualitative Screen Negative
== END 2025-05-18 22:01 | disposition home or self-care (01) ==
LOC: EMR 15:48
PROVIDERS: EMERGENCY PHYSICIAN Emergency Medicine; FAMILY PHYSICIAN Physician Assistant
DX: R07.89 Other chest pain (principal); R16.1 Splenomegaly, not elsewhere classified; R10.9 Unspecified abdominal pain; Z86.19 Personal history of other infectious and parasitic diseases
CPT/HCPCS: 99284; 76700; 81025; 93005

== ENCOUNTER 2025-07-10 16:05 | Emergency (ER) | payer OTHER, SELFPAY ==
[2025-07-10 16:08] VITALS: BP 130/85
[2025-07-10 17:15] VITALS: BMI 28.4
[2025-07-10 17:31] VITALS: BP 123/81
--- NOTE | 2025-07-10 17:37 | ED.GENMED ---
History of Present Illness
General
Chief Complaint: Abdominal Symptoms
Source: patient
Exam Limitations: none
Time Seen by Provider: 07/10/25 17:12
Nursing documentation reviewed up to this point in time: agreed with
History of Present Illness
History of Present Illness:
Patient to the emergency department with complaint of nausea and vomiting. Symptoms started this morning. She reports multiple episodes of vomiting. She denies fever or chills. Denies any abdominal pain or diarrhea. She denies any sick
contacts. States her PCP suspects she has a history of dysautonomia/POTS. She states she has nausea frequently and is prescribed oral Zofran. She did not take the Zofran today due to the persistent vomiting. Brought self to the emergency
department for evaluation
Past History
Past History
ED Past Medical History: Psychiatric (Anxiety)
ED Past Surgical History: Other (Skin lesion removal)
Social History
Tobacco: Non-smoker
Alcohol: None
Drug: None
Personal: Single
Living: with roommate
Employment: Student
Family History
Family History: Other (Noncontributory)
Review of Systems
Review of Systems
Allergies reviewed?: Yes
All Other Systems: ROS reviewed and negative except as documented in HPI and ROS
Constitutional: Reports no symptoms
EENT: Reports no symptoms
Respiratory: Reports no symptoms
Cardiac: Reports no symptoms
ABD/GI: Reports nausea and vomiting
: Reports no symptoms
Musculoskeletal: Reports no symptoms
Skin: Reports no symptoms
Neurological: Reports no symptoms
Psychiatric: Reports no symptoms
Phy Exam
General Physical Exam
General Presentation: well appearing and mild distress
General age: appears stated age
General Skin: warm and dry
General Habitus: normal
Cardiovascular Exam
Cardiovascular Exam: regular rate/rhythm and no edema
Gastrointestinal Exam
Gastrointestinal Exam: normal bowel sounds, non tender, soft, no organomegaly and non distended
Musculoskeletal Exam
Musculoskeletal Exam: full ROM
Skin Exam
Skin Exam: normal color, warm/dry and no rash
Psychiatric Exam
Psychiatric Exam: normal mood/affect
Course
Orders/Labs/Results
Orders:
Orders
07/10/25 16:11
Test Result ONCE
07/10/25 17:33
Complete Blood Count/With Diff Urgent
Comprehensive Metabolic Panel Urgent
HCG, Serum Qualitative Screen Urgent
Comment: Notify provider if positive test present
Lipase Urgent
07/10/25 17:36
0.9% Sodium Chloride 1000 ml [Nss] 1,000 ml IV BOLUS
Ketorolac [Toradol] 30 mg IV NOW STA
Ondansetron Injectable [Zofran] 4 mg IV NOW STA
07/10/25 19:09
Urinalysis Reflex To Culture Urgent
Date Specimen was Collected: 07/10/25
Time Specimen was Collected: 17:35
Urine Microscopic Reflex Cult Urgent
07/10/25 20:39
Ondansetron Orally Disint [Zofran Odt (Orally Disintegrating)] 4 mg PO NOW STA
Abnormal Lab Results
07/10/25 07/10/25
17:33 19:09
Neutrophils % 76.4 H %
(42.2-75.2)
Lymphocytes % 15.8 L %
(20.5-51.1)
Albumin 5.2 H g/dl
(3.5-5.0)
Ur Occult Blood Reflex 2+ A
(Negative)
Urine Bacteria (Reflex) Few A
(Negative)
07/10/25 17:33
07/10/25 17:33
Vital Signs
Initial and Last Documented VS:
Initial Vital Signs
Temp Pulse Resp BP Pulse Ox
98.6 F 82 16 130/85 98
07/10/25 16:08 07/10/25 16:08 07/10/25 16:08 07/10/25 16:08 07/10/25 16:08
Last Documented Vital Signs
Temp Pulse Resp BP Pulse Ox
98.6 F 60 7 112/68 99
07/10/25 16:08 07/10/25 20:40 07/10/25 20:40 07/10/25 20:40 07/10/25 20:40
*Radiology
Radiology exam reviewed: radiology read reviewed
*Pulse Oximetry
SaO2: 98
Oxygen Mode of Delivery: Room air
Patient hypoxic: no
*Critical Care Note
Total Time (30-74mins, 75-104mins- exclusive of procedures): Not Applicable
Update Note
Update Note:
Patient to the emergency department with complaint of nausea and vomiting. Symptoms started this morning. She reports multiple episodes of vomiting throughout the day. She denies any abdominal pain. Vital signs are stable she remains afebrile.
CBC CMP and UA evaluated. No concerning findings on any of those tests. She was given IV fluids and Zofran in the ED with resolution of her symptoms. She is able to tolerate p.o. fluids now. She remains awake alert nontoxic-appearing. Abdomen
remains soft and nontender. Will discharge home. Recommend clear liquids with slow advance to regular diet. Encouraged to increase fluid intake. Given Rx for Zofran 4 mg SL 3 times daily as needed nausea. She will follow-up with her family
doctor in the a.m. She was given instructions on signs and symptoms to return to the emergency department and she is agreeable with this plan.
ED Attending Note
-
Portions of this chart may have been created with voice recognition software.� Occasional wrong word or��sound alike� substitutions may have occurred due to the inherent limitations of voice recognition software.
Discharge Plan
Departure
Patient Disposition: Home (Routine Discharge)
Date of Disposition: 07/10/25
Time of Disposition: 20:36
Patient with high blood pressure during this ER visit?: No
Condition: Good
Covid-19: Not Applicable
Discharge Problem:
Vomiting
Instructions: Nausea and Vomiting, Adult (DC)
Prescriptions:
New
ondansetron 4 mg tablet,disintegrating
4 mg PO Q4H PRN (Reason: nausea and vomiting) Qty: 15 0RF
No Action
amoxicillin 400 MG/5 ML suspension for reconstitution
400 mg PO TID Qty: 120 0RF
carbamazepine [Epitol] 200 mg tablet
100 mg PO TID Qty: 45 0RF
Rx Instructions:
May increase to 200mg PO tid after one week
Referrals:
Tabitha Jeong PA [Family Provider, Family Practice] - Tomorrow
Activity Restrictions/Additional Instructions:
Return to the emergency department for any changes in/worsening of your symptoms.
Interventions
Interventions:
*Risk Screen - Suicide Last Done: 07/10/25 16:08
*General Assessment Last Done: 07/10/25 17:15
*Neglect/Abuse Screening Last Done: 07/10/25 16:08
*ED- Fall Risk Assessment Last Done: 07/10/25 17:15
*ED COVID-19 Vaccine History Last Done: 07/10/25 17:15
*ED Influenza Vaccine History Last Done: 07/10/25 17:15
*Nursing Disposition Last Done: 07/10/25 21:44
YC-Uvqzpm-Msmopiyndh Assessment Last Done: 07/10/25 17:15
Discharge Date and Time
Discharge Date/Time: 07/10/25 21:48
Print Language: [place] K[place]
[2025-07-10 17:40] LABS: Hematocrit 40.4 % (37.0-47.0); Hemoglobin 14.0 g/dL (12.0-16.0); Mean Corp Hgb Conc. 34.7 g/dL (33.0-37.0); Mean Corpuscular Volume 84.3 fL (81.0-99.0); Nucleated Red Blood Cells % 0 %; Platelet Count 324 10^3/uL (130-400); Red Cell Dist. Width 11.8 % (11.5-14.5)
[2025-07-10] MEDS: TORADOL 30 MG IV (17:42)
[2025-07-10] MEDS: ZOFRAN 4 MG IV (17:42)
[2025-07-10] MEDS: NSS 1000 IV (17:43)
[2025-07-10 17:50] LABS: HCG, Serum Qualitative Screen Negative
[2025-07-10 17:59] LABS: ALT (SGPT) 10 U/L (0-35); AST (SGOT) 18 U/L (14-36); Albumin 5.2 g/dl (3.5-5.0); Alkaline Phosphatase 47 U/L (38-126); Blood Urea Nitrogen 12 mg/dl (7-17); Calcium 10.0 mg/dl (8.4-10.2); Carbon Dioxide 26 mmol/L (22-30); Chloride 103 mmol/L (98-107); Estimated Creatinine Clearance > 125 ml/min; Glucose 94 mg/dl (70-99); Lipase 61 U/L (23-300); Potassium 4.0 mmol/L (3.5-5.1); Sodium 139 mmol/L (135-145); Total Protein 8.2 g/dl (6.3-8.2); eGFR > 60.00
[2025-07-10 18:00] VITALS: BP 108/73
[2025-07-10 19:17] LABS: Urine Character Clear (Clear)
[2025-07-10 19:25] LABS: Urine Red Blood Cell 0-2 /HPF (0-2); Urine Squamous Cell >30 /LPF (Few); Urine White Cell 0-2 /HPF (0-5)
[2025-07-10 20:03] VITALS: BP 117/81
[2025-07-10 20:40] VITALS: BP 112/68
[2025-07-10] MEDS: ZOFRAN ODT (ORALLY DISINTEGRATING) 4 MG PO (20:45)
== END 2025-07-10 21:48 | disposition home or self-care (01) ==
LOC: EMR 16:05
PROVIDERS: Nurse Practitioner; Student in an Organized Health Care Education/Training Program; EMERGENCY PHYSICIAN Student in an Organized Health Care Education/Training Program; FAMILY PHYSICIAN Physician Assistant
DX: R11.10 Vomiting, unspecified (principal)
CPT/HCPCS: 99284; 96374; 96375; 96361; 80053; 81003; 81015; 83690; 84703; 85025